=== PATIENT | male | born 1970 ===

== ENCOUNTER 2019-11-06 23:19 | Outpatient (REF) | payer OTHER, SELFPAY ==
[2019-11-07 00:23] LABS: HIV 1 & 2 Antibody Non-Reactive (Non-Reactiv); HIV 1 & 2 Antigen Non-Reactive (Non-Reactiv)
[2019-11-07 01:08] LABS: Hepatitis C Virus Antibody Non-Reactive (Nonreactive)
[2019-11-07 01:09] LABS: Hepatitis B Surface AB 35.3 (0-8.5); Hepatitis B Surface Antigen Non-Reactive (Nonreactive)
== END 2019-11-06 23:20 | disposition home or self-care (01) ==
LOC: LAB 23:19
PROVIDERS: Family Provider General Practice; Visit Provider Dermatology
DX: Z01.89 Encounter for other specified special examinations (principal)
CPT/HCPCS: 86706; 86803; 87340; 87806